=== PATIENT | female | born 2005 | race Caucasian/White ===

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

== ENCOUNTER → 2023-06-28 | Outpatient (CLI) | payer BC, SELFPAY ==
[2023-06-28 12:40] LABS: AST(SGOT) 17 U/L (15-37); Absolute Lymphocyte Count 1.33 X10^3/uL (0.83-4.51); Alanine Aminotransfer ALT/SGPT 32 U/L (13-56); Albumin, Serum 3.7 g/dL (3.2-5.0); Alkaline Phosphatase 55 U/L (45-117); Anion Gap 7 (5-15); BUN 8 mg/dL (7-18); BUN/Creat Ratio 10.8 RATIO (10-20); Basophil# 0.02 X10^3/uL; Basophil% 0.5 % (0-1); Calcium,Total 8.8 mg/dL (8.5-10.1); Chloride 110 mmol/L (98-107); Cholesterol 169 mg/dL (200); Creatinine, Serum 0.74 mg/dL (0.55-1.02); EST Glomerular Filtration Rate 106 mL/min (>60); Eosinophil# 0.03 X10^3/uL; Eosinophils% 0.8 % (0-5); Est Glom Filt Rate - Afr Amer 128 mL/min (>60); Globulin 3.7 g/dL (2.2-4.2); Glucose 85 mg/dL (74-106); Hematocrit 38.2 % (37-47); Hemoglobin 12.2 g/dL (12.0-15.0); High Density Lipoprotein 69 mg/dL; Lymphocyte # 1.33 X10^3/ul (0.83-4.51); Lymphocyte % 34.7 % (19-41); Mean Corp Hgb Conc 31.9 g/dL (32-36); Mean Corpuscular Hgb 29.1 pg (27.0-32.0); Mean Corpuscular Volume 91.2 fL (81-99); Mean Platelet Vol. 10.6 fl (6.2-12.0); Monocyte% 10.4 % (0-10); NRBC Flagged by Analyzer 0 % (0-5); Neutrophil # 2.04 X10^3/uL (2.7-7.7); Neutrophil % 53.3 % (47-70); Platelet Count 246 K/mm3 (150-450); Potassium 3.8 mmol/L (3.5-5.1); Protein, Total 7.4 g/dL (6.4-8.2); RBC Distribution Width CV 13.6 % (11.6-14.6); RBC Distribution Width SD 45.6 fl (35.1-43.9); Red Blood Count 4.19 M/mm3 (4.2-5.4); Sodium Level 141 mmol/L (136-145); Triglycerides 55 mg/dL; Very Low Density Lipoprotein 11 mg/dL (5-40); White Blood Count 3.8 K/mm3 (4.4-11.0)
== END | disposition home or self-care (01) ==
LOC: BFHLAB 09:16
PROVIDERS: PCP Nurse Practitioner Family; Visit Provider Nurse Practitioner Family
DX: Z00.01 Encounter for general adult medical examination with abnormal findings (principal); F41.1 Generalized anxiety disorder
CPT/HCPCS: 36415; 80053; 80061; 85025

== ENCOUNTER → 2024-05-28 | Outpatient (CLI) | payer BC, SELFPAY | END | disposition home or self-care (01) | LOC: LABSPEC 08-02 14:21 | PROVIDERS: PCP Nurse Practitioner Family; Visit Provider Nurse Practitioner Family | DX: Z20.9 Contact with and (suspected) exposure to unspecified communicable disease (principal) | CPT/HCPCS: 87633 ==

== ENCOUNTER → 2024-06-18 | Outpatient (CLI) | payer BC, SELFPAY ==
--- NOTE | 2024-06-18 16:26 | RAD_ITS ---
EXAM: XR Thoracic Spine, 3 Views CLINICAL INDICATION: TECHNIQUE: Frontal, lateral and swimmer's views of the thoracic spine. COMPARISON: No relevant prior studies available. FINDINGS: VERTEBRAE: Unremarkable. No acute fracture. Normal alignment. DISC SPACES: No acute findings. No significant narrowing. SOFT TISSUES: Unremarkable. RAD/Thoracic Spine 3 Views IMPRESSION: No acute fracture. Reading [facility]
--- NOTE | 2024-06-18 16:26 | RAD_ITS ---
PROCEDURE: CERV SPINE 4 OR 5 VIEWS REASON FOR EXAM: Pain and stiffness. TECHNIQUE: 5 views of the cervical spine. COMPARISON: None. FINDINGS: Normal vertebral body heights. No visible fracture. Disc space heights are preserved. Normal alignment. Neural foramina are normal. Facets are unremarkable. Prevertebral soft tissues are unremarkable. RAD/Cerv Spine 4 or 5 Views IMPRESSION: NEGATIVE CERVICAL SPINE. Reading Location: [facility]
== END | disposition home or self-care (01) ==
LOC: MTRAD 16:22
PROVIDERS: PCP Nurse Practitioner Family; Referring Provider Nurse Practitioner Family; Visit Provider Nurse Practitioner Family
DX: M54.2 Cervicalgia (principal)
CPT/HCPCS: 72050; 72072

== ENCOUNTER → 2024-09-03 | Outpatient (CLI) | payer BC, SELFPAY ==
--- NOTE | 2024-09-03 16:32 | RAD_ITS ---
PROCEDURE: KNEE 4 OR MORE VIEWS 09/03/2024 REASON FOR EXAM: KNEE PAIN TECHNIQUE: 4 view(s) of the left knee COMPARISON: No relevant prior. FINDINGS: Bones: No osseous abnormalities. Joints: No dislocations or subluxations. Effusion: Unremarkable. Soft tissues: Unremarkable. Other: No other significant findings. RAD/Knee 4 or More Views IMPRESSION: No acute osseous abnormalities involving the left knee. Reading Location: [facility]
== END | disposition home or self-care (01) ==
LOC: MTRAD 16:28
PROVIDERS: PCP Nurse Practitioner Family; Referring Provider Nurse Practitioner Family; Visit Provider Nurse Practitioner Family
DX: M25.562 Pain in left knee (principal)
CPT/HCPCS: 73564

== ENCOUNTER → 2024-11-13 | Outpatient (CLI) | payer BC, SELFPAY ==
[2024-11-13 15:58] LABS: Hematocrit 39.8 % (37-47); Hemoglobin 12.8 g/dL (12.0-15.0); Immature Granulocytes Count 0.010 X10^3/uL (0.0-0.0); Mean Corp Hgb Conc 32.2 g/dL (32-36); Mean Corpuscular Volume 89.0 fL (81-99); Mean Platelet Vol. 10.6 fl (6.2-12.0); NRBC Flagged by Analyzer 0 % (0-5); Platelet Count 292 K/mm3 (150-450); RBC Distribution Width CV 13.9 % (11.6-14.6); RBC Distribution Width SD 45.1 fl (35.1-43.9); Red Blood Count 4.47 M/mm3 (4.2-5.4); White Blood Count 4.9 K/mm3 (4.4-11.0)
[2024-11-13 17:07] LABS: AST(SGOT) 21 U/L (<=31); Alanine Aminotransfer ALT/SGPT 23 U/L (<=34); Albumin, Serum 4.4 g/dL (3.5-5.0); Alkaline Phosphatase 71 U/L (35-104); Anion Gap 13 (5-15); BUN 8 mg/dL (4-19); BUN/Creat Ratio 12.5 RATIO (10-20); Calcium,Total 9.2 mg/dL (7.6-11.0); Carbon Dioxide 19.4 mmol/L (21.0-32.0); Chloride 105 mmol/L (98-108); Cholesterol 191 mg/dL (<=190); Globulin 3.3 g/dL (2.2-4.2); Glucose 83 mg/dL (70-99); Low Density Lipoprotein Calc. 104 mg/dL; Potassium 4.0 mmol/L (3.3-5.1); Triglycerides 81 mg/dL; Very Low Density Lipoprotein 16 mg/dL (5-40); Vitamin B12 291 pg/mL (180-914); Vitamin D,25 Hydroxy 29.3 ng/mL (30-100); cholesterol:hdl ratio screen 2.71
== END | disposition home or self-care (01) ==
PROVIDERS: PCP Nurse Practitioner Family; Visit Provider Nurse Practitioner Family
DX: Z00.01 Encounter for general adult medical examination with abnormal findings (principal); Z83.49 Family history of other endocrine, nutritional and metabolic diseases; F41.1 Generalized anxiety disorder; R53.83 Other fatigue
CPT/HCPCS: 36415; 80053; 80061; 82306; 82607; 84439; 84443; 85025

== ENCOUNTER → 2024-12-24 | Outpatient (CLI) | payer BC, SELFPAY ==
[2024-12-24 12:40] LABS: HIV Nonreactive (Nonreactive); Syphilis Antibodies Nonreactive (Nonreactive)
== END | disposition home or self-care (01) ==
LOC: BFHLAB 09:24
PROVIDERS: PCP Nurse Practitioner Family; Visit Provider Nurse Practitioner Family
DX: Z20.9 Contact with and (suspected) exposure to unspecified communicable disease (principal)
CPT/HCPCS: 36415; 86703; 86780; 87086; 87088; 87491; 87591

== ENCOUNTER → 2024-12-26 | Outpatient (CLI) | payer BC, SELFPAY | END | disposition home or self-care (01) | LOC: LABSPEC 14:56 | PROVIDERS: PCP Nurse Practitioner Family; Visit Provider Nurse Practitioner Family | DX: N39.0 Urinary tract infection, site not specified (principal) | CPT/HCPCS: 87086 ==